=== PATIENT | male | born 1980 | race Caucasian/White ===

== ENCOUNTER 2017-05-19 08:15 | Day surgery (SDC) | payer BC ==
[~2017-05-19 08:15] MED LIST: Lactated Ringers 1,000 ML IV SCH; Lidocaine 2% 5 ML SDV ONE; Midazolam 1 MG/ML 2 ML SDV ONE; Propofol 200 MG/20 ML SDV ONE; Sodium Chloride 0.9% 10 ML Syringe FLUSH PRN; Sodium Chloride 0.9% 2.5 ML Syringe FLUSH PRN; ceFAZolin 2 GM in Premix Bag 1 BAG IV ONE; fentaNYL 100 MCG/2 ML SDV ONE
--- NOTE | 2017-05-19 09:19 | PCM.PREANE ---
Preanesthetic Assessment - Procedure Proposed Procedure: bilateral inguinal hernia repair - Anesthesia/Transfusion/Family Hx Anesthesia History: Prior Anesthesia Without Reaction Family History of Anesthesia Reaction: No Transfusion History: No Prior Transfusion(s) Intubation History: Unknown Additional History: prior umbilical hernia repair, tonsillectomy - Review of Systems General: No Symptoms Pulmonary: No Symptoms Cardiovascular: No Symptoms Gastrointestinal: Abdominal Pain (due to hernias intermittently) Neurological: No Symptoms Other: Reports: None - Physical Assessment NPO Status Date: 05/18/17 NPO Status Time: 22:00 O2 Sat by Pulse Oximetry: 97 Respiratory Rate: 16 Vital Signs: Last Vital Signs Temp 97.3 F 05/19/17 08:32 Pulse 79 05/19/17 08:32 Resp 16 05/19/17 08:32 BP 132/80 05/19/17 08:32 Pulse Ox 97 05/19/17 08:32 Height: 5 ft 8 in Weight: 187 lb Mental Status: Alert & Oriented x3 Airway Class: Mallampati = 1 Dentition: Reports: Normal Dentition Thyro-Mental Finger Breadths: 3 Mouth Opening Finger Breadths: 3 ROM/Head Extension: Full Lungs: Clear to Auscultation, Normal Respiratory Effort Cardiovascular: Regular Rate, Regular Rhythm, No Murmurs - Lab Values: Laboratory Last Values WBC 4.89 K/uL (4.0-11.0) 05/19/17 08:48 RBC 4.74 M/uL (4.50-5.90) 05/19/17 08:48 Hgb 14.8 g/dL (13.0-17.0) 05/19/17 08:48 Hct 43.2 % (38.0-50.0) 05/19/17 08:48 MCV 91.1 fL (80.0-98.0) 05/19/17 08:48 MCH 31.2 pg (27.0-32.0) 05/19/17 08:48 MCHC 34.3 g/dL (31.0-37.0) 05/19/17 08:48 RDW Std Deviation 41.7 fl (28.0-62.0) 05/19/17 08:48 RDW Coeff of Jamie 13 % (11.0-15.0) 05/19/17 08:48 Plt Count 234 K/uL (150-400) 05/19/17 08:48 MPV 9.70 fL (7.40-12.00) 05/19/17 08:48 Neut % (Auto) 54.2 % (48.0-80.0) 05/19/17 08:48 Lymph % (Auto) 35.0 % (16.0-40.0) 05/19/17 08:48 [place] % (Auto) 9.6 % (0.0-15.0) 05/19/17 08:48 Eos % (Auto) 1.0 % (0.0-7.0) 05/19/17 08:48 Baso % (Auto) 0.2 % (0.0-1.5) 05/19/17 08:48 Neut # (Auto) 2.7 K/uL (1.4-5.7) 05/19/17 08:48 Lymph # (Auto) 1.7 K/uL (0.6-2.4) 05/19/17 08:48 [place] # (Auto) 0.5 K/uL (0.0-0.8) 05/19/17 08:48 Eos # (Auto) 0.1 K/uL (0.0-0.7) 05/19/17 08:48 Baso # (Auto) 0.0 K/uL (0.0-0.1) 05/19/17 08:48 Nucleated RBC % 0.0 /100WBC 05/19/17 08:48 Nucleated RBCs # 0 K/uL 05/19/17 08:48 - Allergies Allergies/Adverse Reactions: Allergies Allergy/AdvReac Type Severity Reaction Status Date / Time No Known Allergies Allergy Verified 06/25/16 20:32 - Blood Blood Available: No - Anesthesia Plan Pre-Op Medication Ordered: None - Acknowledgements Anesthesia Type Planned: General Anesthesia (OET ) Pt an Appropriate Candidate for the Planned Anesthesia: Yes Alternatives and Risks of Anesthesia Discussed w Pt/Guardian: Yes Pt/Guardian Understands and Agrees with Anesthesia Plan: Yes PreAnesthesia Questionnaire HEENT History: Reports: None Cardiovascular History: Reports: None Respiratory History: Reports: None Gastrointestinal History: Reports: None Genitourinary History: Reports: None Musculoskeletal History: Reports: Fracture Neurological History: Reports: None Psychiatric History: Reports: None Dermatologic History: Reports: None - Infectious Disease History Infectious Disease History: Reports: None - Past Surgical History Head Surgeries/Procedures: Reports: None HEENT Surgical History: Reports: Tonsillectomy GI Surgical History: Reports: Hernia, Abdominal Musculoskeletal Surgical History: Reports: Other (See Below) Other Musculoskeletal Surgeries/Procedures:: surgery on rt hand for fx - SUBSTANCE USE Smoking Status *Q: Never Smoker Second Hand Smoke Exposure: No Recreational Drug Use History: No - HOME MEDS Home Medications: Home Meds . [No Known Home Meds] 06/25/16 [History] - CURRENT (IN HOUSE) MEDS Current Meds: Current Medications Lactated Ringer's (Ringers, Lactated) 1,000 mls @ 100 mls/hr IV ASDIRECTED EUGENE Last Admin: 05/19/17 08:39 Dose: 100 mls/hr Sodium Chloride (Saline Flush) 10 ml FLUSH ASDIRECTED PRN PRN Reason: Keep Vein Open Sodium Chloride (Saline Flush) 2.5 ml FLUSH ASDIRECTED PRN PRN Reason: Keep Vein Open Discontinued Medications Fentanyl (Sublimaze) Confirm Administered Dose 100 mcg .ROUTE .STK-MED ONE Stop: 05/19/17 08:11 Cefazolin Sodium/Dextrose 2 gm (/ Premix) 50 mls @ 100 mls/hr IV ONCALL ONE Stop: 05/19/17 07:29 Lidocaine (Xylocaine-Mpf 2%) Confirm Administered Dose 10 ml .ROUTE .STK-MED ONE Stop: 05/19/17 08:11 Midazolam HCl (Versed 1 Mg/Ml) Confirm Administered Dose 2 mg .ROUTE .STK-MED ONE Stop: 05/19/17 08:12 Propofol (Diprivan 20 Ml) Confirm Administered Dose 400 mg .ROUTE .STK-MED ONE Stop: 05/19/17 08:11
[2017-05-19 09:27] LABS: CHLORIDE,CL 107 mmol/L (98-110); SODIUM,NA 139 mmol/L (136-146)
[2017-05-19] MEDS ORDERED: fentaNYL 250 MCG/5 ML SDV ONE (11:28)
[2017-05-19] MEDS ORDERED: Ondansetron 4 MG/2 ML SDV ONE (11:33)
[2017-05-19] MEDS ORDERED: Ketorolac 30 MG/ML SDV ONE (11:33)
[2017-05-19] MEDS ORDERED: Rocuronium 10 MG/ML 10 ML Syringe ONE (11:33)
[2017-05-19] MEDS ORDERED: Neostigmine Methylsulfate 1 MG/ML 5 ML Syringe ONE (11:33)
[2017-05-19] MEDS ORDERED: Bupivacaine 0.5% 30 ML SDV ONE (11:38)
[2017-05-19] MEDS ORDERED: fentaNYL 100 MCG/2 ML SDV IVPUSH PRN (12:29)
[2017-05-19] MEDS ORDERED: Propofol 200 MG/20 ML SDV ONE (13:14)
[2017-05-19] MEDS ORDERED: Desflurane 240 ML Bottle ONE (14:21)
[2017-05-19 16:10] VITALS: BP 119/68
--- NOTE | 2017-05-20 10:53 | OR ---
SURGEON: Padmini Bobby M.D. DATE OF PROCEDURE: 05/19/2017 PREOPERATIVE DIAGNOSIS: Bilateral inguinal hernias. POSTOPERATIVE DIAGNOSIS: Bilateral inguinal hernias. OPERATION: Bilateral inguinal hernia repair. DESCRIPTION OF PROCEDURE: The patient was given general anesthesia in a supine position. He was prepped and draped in sterile drapes. A right groin incision was made and carried through the fascia. The inguinal canal was opened. A large lipoma of the spermatic cord was evacuated. There was no hernia sac. The defect in the transversalis fascia was repaired using interrupted 3-0 silk sutures. The conjoint tendon was approximated to the patient's inguinal ligament, after a relaxing incision was made. The 2-0 silk sutures were used for that. The cord structures were then placed in the inguinal canal with visible pulse. The external oblique aponeurosis was closed with interrupted 3-0 silk sutures. Subcutaneous tissues were reapproximated with 3-0 chromic. The skin was closed with subcuticular absorbable suture. Estimated blood loss was under 10 mL. The exact same thing was done on the other side. The patient tolerated both procedures well and was moved to the recovery room in good condition. JUAN FRANCISCO / REGINA /[id number]
== END 2017-05-19 16:58 | disposition home or self-care (01) ==
LOC: MW.SDS 08:15
PROVIDERS: ATTEND Urology
DX: K40.20 Bilateral inguinal hernia, without obstruction or gangrene, not specified as recurrent (principal); D17.6 Benign lipomatous neoplasm of spermatic cord; Z98.890 Other specified postprocedural states; Z90.89 Acquired absence of other organs; Z80.0 Family history of malignant neoplasm of digestive organs
CPT/HCPCS: 36415; 49505; 80048; 85025; J1885; J2250; J2405; J3010; J7120; 00830; 88302; J2704